=== PATIENT | male | born 1985 | race Caucasian/White ===

== ENCOUNTER → 2020-11-08 09:33 | Outpatient (BNVA) | payer SELFPAY | PROVIDERS: PCP Family Medicine Adult Medicine; Visit Provider Family Medicine | DX: I10 Essential (primary) hypertension (principal) | CPT/HCPCS: 80053; 80061; 82043; 85025 ==

== ENCOUNTER → 2023-04-29 15:07 | Outpatient (BNVA) | payer OTHER, SELFPAY | PROVIDERS: PCP Family Medicine Adult Medicine; Referring Provider Dermatology; Visit Provider Specialist | DX: S89.91XA Unspecified injury of right lower leg, initial encounter (principal); W17.89XA Other fall from one level to another, initial encounter | CPT/HCPCS: 73560; 73565 ==

== ENCOUNTER 2023-05-06 06:44 | Outpatient (CLI) | payer OTHER, SELFPAY ==
--- NOTE | 2023-05-06 07:00 | CT_ITS ---
WS: [id number] CT RIGHT KNEE, 3-D. HISTORY: possible fracture of proximal fibula not visualized in x ray Technique: All CT scans at [facility] use at least one of these dose optimization techniques: automated exposure control; mA and/or kV adjustment per patient size (includes targeted exams where dose is matched to clinical indication); or iterative reconstruction. DLP: 360.42 mGy.cm COMPARISON: Radiographs 04/29/2023. Nondisplaced transverse proximal fibular fractures. Nondisplaced fracture through the fibular head. T here is a small amount of soft tissue edema. No definite tibial plateau fracture. There is very slight sclerosis along the medial tibial plateau a nd very mild subchondral lucency along the anterior lateral tibial plateau. Favor these are both area s related to arthritis. No loose body. Patella is intact. No significant joint effusion. Soft tissue varicosities. CT/CT knee RT wo con* [id number] IMPRESSION: 1. Nondisplaced fibular head fracture. 2. At most likely degenerative changes along the tibial plateaus. No tibial pl ateau fracture.
== END 2023-05-06 06:45 | disposition home or self-care (01) ==
LOC: RAD 06:47
PROVIDERS: PCP Family Medicine Adult Medicine; Visit Provider Specialist
DX: S82.831A Other fracture of upper and lower end of right fibula, initial encounter for closed fracture (principal); X58.XXXA Exposure to other specified factors, initial encounter
CPT/HCPCS: 73700

== ENCOUNTER 2023-06-11 13:56 | Outpatient (CLI) | payer OTHER, SELFPAY ==
--- NOTE | 2023-06-11 | USCV_ITS ---
Butch Knowles Age: 38 Gender: M : 1985 Exam Date: 06/11/2023 14:20 Ordering Phys: Arti Babin Technologist: ARASELI [place]am [place] [facility] [place] Indication: NEW ONSET OF A FIB BP: / HR: 106 Rhythm: Atrial fibrillation Technical Quality: Poor because of body habitus MEASUREMENTS (Male / Female) Normal Values 2D ECHO LV Diastolic Diameter PLAX 5.1 cm 4.2 - 5.9 / 3.9 - 5.3 cm LV Systolic Diameter PLAX 3.1 cm LV Chamber Size 3.2 cm IVS Diastolic Thickness 1.3 cm 0.6 - 1.0 / 0.6 - 0.9 cm IVS Systolic Thickness 2.0 cm LVPW Diastolic Thickness 1.4 cm 0.6 - 1.0 / 0.6 - 0.9 cm LVPW Systolic Thickness 2.0 cm RV Chamber Size 4.7 cm LVOT Diameter 2.1 cm LV Ejection Fraction 2D Teich 70.0 % LV Ejection Fraction MOD 2C 57.8 % LV Ejection Fraction 2C AL 59.0 % LA Diameter 5.0 cm LA Width 3.1 cm LA Height 4.2 cm RA Width 4.7 cm RA Height 4.2 cm Aorta at Sinotubular Diameter 3.2 cm IVC Diameter 3.1 cm M-MODE Aortic Annulus Diameter 3.1 cm LA Ao Ratio MM 1.9 MV E Point Septal Separation 0.7 cm DOPPLER AV Peak Velocity 120.0 cm/s LVOT Peak Velocity 93.0 cm/s AV Area Cont Eq vti 2.1 cm squared AV Area Cont Eq pk 2.7 cm squared MV Area PHT 3.3 cm squared Mitral E to A Ratio 148.7 MV E' Velocity 51.5 cm/s Mitral E to MV E' Ratio 6.4 Mitral E to LV E' Lateral Ratio 6.6 Mitral E to LV E' Septal Ratio 6.3 TR Peak Velocity 228.4 cm/s TR Peak Gradient 20.9 mmHg TR Mean Velocity 175.9 cm/s TR Mean Gradient 13.6 mmHg TR Velocity Time Integral 64.3 cm TV Peak E Velocity 68.0 cm/s Right Atrial Pressure 3.0 mmHg Pulmonary Artery Systolic Pressu 23.9 mmHg RV Acceleration Time 0.2 s RV Ejection Time 0.3 s RV AcT/ET 0.6 FINDINGS Left Ventricle The ventricle is poorly seen secondary to obesity and atrial fibrillation with a mildly rapid ventricular response. As seen, the ventricle is normal in size and function. Ejection fraction about 55%. Diastolic function cannot be determined because of the irregular rhythm. Echo contrast material (Optison) was recommended but the patient declined fearing an allergy. Right Ventricle Normal right ventricular size and systolic function. Normal right ventricular systolic pressure. Right Atrium Mildly increased right atrial size. Left Atrium Mildly increased left atrial size. Mitral Valve Mitral valve not well visualized. Aortic Valve Aortic valve not well visualized. Tricuspid Valve Tricuspid valve not well visualized. Pulmonic Valve Pulmonic valve not well visualized. Pericardium Normal pericardium without effusion. Aorta Aorta not well visualized. IVC Inferior vena cava not visualized. CONCLUSIONS The ventricle is poorly seen secondary to obesity and atrial fibrillation with a mildly rapid ventricular response. As seen, the ventricle is normal in size and function. Ejection fraction about 55%. Diastolic function cannot be determined because of the irregular rhythm. Echo contrast material (Optison) was recommended but the patient declined fearing an allergy. Mildly increased right atrial size. Mildly increased left atrial size. There are no prior echocardiogram studies to compare. Dr. Tommy Baker MD (Electronically Signed) Final Date: 11 June 2023 17:12 S
== END 2023-06-11 13:57 | disposition home or self-care (01) ==
PROVIDERS: PCP Family Medicine Adult Medicine; Visit Provider Physician Assistant
DX: I48.91 Unspecified atrial fibrillation (principal); E66.9 Obesity, unspecified
CPT/HCPCS: 93306

== ENCOUNTER → 2023-06-26 14:40 | Outpatient (BNVA) | payer OTHER, SELFPAY | PROVIDERS: PCP Physician Assistant; Visit Provider Internal Medicine Cardiovascular Disease | DX: I48.91 Unspecified atrial fibrillation (principal) | CPT/HCPCS: 93005 ==

== ENCOUNTER 2023-07-19 10:03 | Outpatient (CLI) | payer OTHER, SELFPAY ==
--- NOTE | 2023-07-19 | ECG_ITS ---
[facility] Test Date: 2023-07-19 Pat Name: Butch Knowles Department: Room: Gender: Male Matcher: Marcoslyndsey Linder : 1985 Requested By: Sadiq Galvez Order Number: [id number] Cliff MD: Sadiq Galvez M.D. Interpretive Statements NAME OF STUDY: LEXISCAN SESTAMIBI STRESS TEST INDICATION: Afib, PROCEDURE: At the baseline, the EKG revealed atrial fibrillation with a ventricular response rate of 94 bpm. The baseline heart was 94 bpm with a blood pressue of 120/90 mm of Hg Lexiscan was infused over a period of 20 seconds. A total of 0.4 milligrams of Lexiscan was infused. The stress phase was continued for a total of 5 minutes. Heart rate at the end of the stress phase was 117 bpm with a blood pressure 126/94 mm of Hg. The EKG at the peak infusion revealed no significant changes. Sestamibi was injected 20 seconds after the Lexiscan infusion. Heart rate at the end of the recovery phase was 106 bpm with a blood pressure of 125/91 mm of Hg. CONCLUSION: 1. No significant EKG changes with the LexiScan infusion 2. No LexiScan induced chest pain or cardiac arrhythmia 3. Normal blood pressure and heart rate response 4. Sestamibi/sestamibi perfusion scan pending; see separate report. Electronically Signed On 07-20-2023 18:57:27 CDT by Sadiq Galvez M.D. [email or web address]
[2023-07-19 10:59] VITALS: BMI 50.0
--- NOTE | 2023-07-19 11:08 | NMCV_ITS ---
NM greg perf SPECT r/s* [id number] Butch Knowles Age: 38 Gender: M : 1985 Exam Date: 07/19/2023 11:37 Ordering Phys: Sadiq Galvez MD ([email or web address]) Technologist: MOISES Duque Exam Location: [facility] Indications: CORONARY ANGIOPLASTY STATUS STRESS TEST Please see separate stress test report in [facility] for full findings IMAGE PROTOCOL Rest/Stress 1 Lexiscan Day Radiopharmaceutical Dose (mCi) Administration Site Administered by Rest: Tc-99m 10.9 IV Ramses Ramirez, [employer] Sestamibi Stress:Tc-99m 32.9 IV Ramses Ramirez, [employer] Sestamibi Rest: 19-Jul-2023 60 Discovery 630 Stress: 19-Jul-2023 30 Discovery 630 0.4mg Lexiscan. Images obtained in supine and prone position. SPECT RESULTS Technical Quality: Excellent Raw Data Analysis: Normal Image Corrections: No attenuation or motion correction applied Summed Stress Score: 3 Summed Rest Score: 2 Summed Difference Score: 1 PERFUSION FINDINGS Myocardial perfusion imaging revealing small areas of minimal to moderately decreased tracer uptake in the mid anterolateral, apical lateral and mid inferior wall regions. Has subtle area of reversibility was noted in the mid anterolateral region FUNCTIONAL RESULTS (calculated via Gated SPECT) Stress Image LV EF (%): 43 Stress EDV (mL):175 TID: 1.15 Stress ESV (mL):99 FUNCTIONAL FINDINGS: Segmental wall motion analysis revealed mild diffuse hypokinesia of the left ventricle. LV cavity was found to be dilated. The transient ischemic dilatation ratio was slightly elevated to 1.15 IMPRESSIONS 1. Myocardial perfusion imaging revealing small areas of minimal to moderately decreased aseptic in the apical lateral, mid anterolateral and mid inferior wall regions with a subtle area reversibility in the mid anterolateral region, suggesting myocardial scarring in the distribution of the left circumflex artery with a very small area of lucy-infarction ischemia. 2. Diminished LV ejection fraction of 43%. 3. LV wall motion analysis revealing mild diffuse hypokinesia of the left ventricle. 4. Mildly dilated LV cavity with end-systolic volume of 99 mL. 5. Borderline elevation of the transient ischemic dilatation ratio also may suggest endocardial ischemia No similar previous studies are available for comparison Dr Sadiq Galvez MD FACC (Electronically Signed) Final Date: 19 July 2023 18:29 S
[2023-07-19] MEDS: regadenoson 0.4 Mg/5 ml Syringe IVP (12:26)
[2023-07-19 12:44] VITALS: BP 125/91; PULSE 111
== END 2023-07-19 10:04 | disposition home or self-care (01) ==
LOC: CDL 10:03
PROVIDERS: PCP Physician Assistant; Visit Provider Internal Medicine Cardiovascular Disease
DX: I48.91 Unspecified atrial fibrillation (principal); Z98.61 Coronary angioplasty status
CPT/HCPCS: 36415; 78452; 93017; 96374; A9500; J2785

== ENCOUNTER → 2024-01-16 08:25 | Outpatient (BNVA) | payer OTHER, SELFPAY | PROVIDERS: PCP Physician Assistant; Visit Provider Family Medicine | DX: Z02.89 Encounter for other administrative examinations (principal) | CPT/HCPCS: 81000 ==